=== PATIENT | female | born 1980 | race Hispanic/Latino ===

== ENCOUNTER 2019-08-20 06:44 | Emergency (ER) | payer OTHER ==
[~2019-08-20] VITALS: Ht 149.9 cm; Wt 44.5 kg
[2019-08-20 06:44] VITALS: BP 152/112
[2019-08-20 07:04] VITALS: BP 152/112
[2019-08-20] MEDS ORDERED: NS 50ML 50 ML IV ONE (07:26)
[2019-08-20] MEDS ORDERED: PHENERGAN ONE (07:27)
[2019-08-20] MEDS ORDERED: PHENERGAN IV STA (07:30)
--- NOTE | 2019-08-20 07:33 | PCM.EKG ---
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
--- NOTE | 2019-08-20 07:40 | ER.PDOC ---
General Chief Complaint: Nausea,Vomiting,Diarrhea Stated Complaint: NAUSEA, VOMITING Time seen by MD: 07:36 Source: patient Exam Limitations: no limitations History of Present Illness Initial Comments Nausea/vomiting since yesterday, no abdominal pain or diarrhea, patient is a chronic alcoholic and she drank heavily yesterday. She also does Marijuana. Severity/Quality: moderate Associated Symptoms (vomiting): freq vomitng Allergies: Coded Allergies: No Known Allergies (Unverified , 08/20/19) Vital Signs First Vital Signs Date Time Temp Pulse Resp B/P (MAP) Pulse Ox O2 Delivery O2 Flow Rate FiO2 08/20/19 06:44 98.5 133 18 08/20/19 06:44 98 08/20/19 07:04 Room Air Last Vital Signs Date Time Temp Pulse Resp B/P (MAP) Pulse Ox O2 Delivery O2 Flow Rate FiO2 08/20/19 07:04 98.5 133 18 98 Room Air Past Medical History Medical History: no pertinent history Surgical History: no surgical history Social History Alcohol Use: heavy Drug Use: marijuana Constitutional: no symptoms reported Respiratory: no symptoms reported Cardiovascular: no symptoms reported Gastrointestinal: see HPI Genitourinary: no symptoms reported All Other Systems: Reviewed and Negative Physical Exam General Appearance: No Apparent Distress, WD/WN Neck: Non-Tender, Full Range of Motion, Supple, Normal Inspection Respiratory: chest non-tender, lungs clear, normal breath sounds, no respiratory distress, no accessory muscle use Cardiovascular: Normal Peripheral Pulses, Regular Rate, Rhythm, No Edema, No Gallop, No JVD, No Murmur, Tachycardia Gastrointestinal: Normal Bowel Sounds, Non Tender, Soft Back: Normal Inspection, No CVA Tenderness, No Vertebral Tenderness Extremities: Normal Range of Motion, Non-Tender, Normal Inspection, No Pedal Edema, No Calf Tenderness, Normal Capillary Refill, Pelvis Stable Neurologic/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: 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, No Motor/Sensory Deficits, Alert, Normal Mood/Affect, Oriented x 3 Skin: Normal Color, Warm/Dry Results/Orders Results/Orders Orders - BRAULIO JEREZ MD 0.9 % Sodium Chloride (Ns 50ml) (08/20/19 07:26) Promethazine Hcl (Phenergan) (08/20/19 07:27) Cbc With Auto Diff (08/20/19 07:30) Comprehensive Metabolic Panel (08/20/19 07:30) Lipase (08/20/19 07:30) Urinalysis (08/20/19 07:30) Ekg-Routine (08/20/19 07:30) Alcohol(Ml) (08/20/19 07:30) Drug Scrn Med W Confirmation (08/20/19 07:30) Hcg Urine (08/20/19 07:30) Promethazine Hcl (Phenergan) (08/20/19 07:30) Urine Culture (08/20/19 07:40) Vital Signs Date Time Temp Pulse Resp B/P (MAP) Pulse Ox O2 Delivery O2 Flow Rate FiO2 08/20/19 07:04 98.5 133 18 98 Room Air 08/20/19 06:44 98.5 133 18 98 08/20/19 06:44 98.5 133 18 Administered Medications Medications (Trade) Dose Ordered Sig/Marcela Route PRN Reason Start Time Stop Time Status Last Admin Dose Admin Promethazine HCl (Phenergan) 25 mg STAT STAT IV 08/20/19 07:30 08/20/19 07:33 DC 08/20/19 07:55 25 MG Laboratory Tests Test 08/20/19 07:38 08/20/19 07:40 White Blood Count 6.0 10^3/uL (4.5-11.0) Red Blood Count 3.92 10^6/uL (4.00-5.20) L Hemoglobin 13.2 g/dL (12.0-15.0) Hematocrit 37.6 % (36.0-46.0) Mean Corpuscular Volume 95.9 fL (78-100) Mean Corpuscular Hemoglobin 33.7 pg (26-34) Mean Corpuscular Hemoglobin Concent 35.1 g/dL (33-36.5) Red Cell Distribution Width 13.6 % (11.5-14.5) Platelet Count 275 10^3/uL (150-400) Mean Platelet Volume 8.9 fL (7.8-11.0) Neutrophils (%) (Auto) 81.7 % (41.0-85.0) Lymphocytes (%) (Auto) 10.1 % (24.0-44.0) L Monocytes (%) (Auto) 7.6 % (5.0-12.0) Neutrophils # (Auto) 4.9 10^3/uL (1.8-7.7) Lymphocytes # (Auto) 0.60 10^3/uL1 (1.0-4.8) L Monocytes # (Auto) 0.5 10^3/uL (0.3-0.8) Absolute Immature Granulocyte (auto 0.02 10^3 u/L (0-2) Absolute Eosinophils (auto) 0.0 10^3/uL (0.0-0.2) Immature Granulocytes % 0.30 % (0.00-0.50) Eosinophils % 0.0 % (0.0-5.0) Basophils % 0.3 % (0.0-0.2) H Basophils # 0.0 10^3/uL (0.0-0.1) Sodium Level 139 mmol/L (132-145) Potassium Level 3.4 mmol/L (3.6-5.2) L Chloride Level 98.0 mmol/L (96-109) Carbon Dioxide Level 25.0 mmol/L (20.0-32) Anion Gap 19.4 Blood Urea Nitrogen 3 mg/dL (7-18) L Creatinine 0.80 mg/dL (0.59-1.40) Estimated GFR () 96.6 (>/=60) Est GFR (CKD-EPI)(Non-Afr [place]) 79.9 (>/=60) BUN/Creatinine Ratio 3.0 Glucose Level 99 mg/dL (70-110) Calcium Level 8.3 mg/dL (8.4-10.5) L Total Bilirubin 0.8 mg/dL (0.2-1.0) Aspartate Amino Transferase (AST) 46 U/L (0-35) H Alanine Aminotransferase (ALT) 27 U/L (12-78) Alkaline Phosphatase 68 U/L (50-136) Total Protein 7.6 g/dL (6.4-8.2) Albumin 4.1 g/dL (3.4-5.0) Globulin 3.5 Lipase 133 U/L (114-286) Serum Alcohol 49 mg/dL (0-50) Urine Collection Type VOID Urine Color YELLOW (YELLOW) Urine Appearance CLOUDY (CLEAR) H Urine Bilirubin NEGATIVE MG/DL (NEGATIVE) Urine Ketones MODERATE (NEGATIVE) H Urine Specific [place] 1.010 (1.005-1.035) Urine pH 7.0 (5.0-6.0) Urine Protein TRACE (NEGATIVE) H Urine Urobilinogen NORMAL (NEGATIVE) Urine Nitrate POSITIVE (NEGATIVE) H Urine Leukocyte Esterase 1+ (NEGATIVE) Urine Blood 50 2+ (NEGATIVE) H Urine RBC 0-2 RBC/HPF (NONE SEEN) Urine WBC 10-25 WBC/HPF (0-2) H Urine Squamous Epithelial Cells MODERATE #/HPF (FEW) Urine Bacteria MANY (NONE SEEN) H Urine Glucose NEGATIVE (NEGATIVE) Urine HCG, Qualitative NEGATIVE (NEGATIVE) Urine Opiates Screen NEGATIVE (c/o300ng/mL) Urine Methadone Screen NEGATIVE (c/o300ng/mL) Urine Barbiturates Screen NEGATIVE (c/o200ng/mL) Urine Phencyclidine Screen NEGATIVE (c/o 25ng/mL) Ur Amphetamine/Methamphetamine NEGATIVE ([id number]/mL) Urine MDMA Screen (Ecstasy) NEGATIVE (c/o300ng/mL) Urine Benzodiazepines Screen PRESUMPTIVE POSITIVE Urine Cocaine Metabolite Screen NEGATIVE (c/o300ng/mL) Ur Tetrahydrocannabinol (THC) Scrn PRESUMPTIVE POSITIVE (c/o Progress Progress Patient feeling better after hydration and heart rate improved to 112. She told me she took her boyfriend's Ativan prior to coming to the ED that is why she is positive for Benzodiazepine. She refused a second litre of fluids telling me that she is feeling better and wants to go home. Departure Time of Disposition: 08:42 Disposition: 01 HOME, SELF-CARE Impression: Primary Impression: Nausea & vomiting Additional Impressions: Dehydration Alcohol abuse Marijuana abuse UTI (urinary tract infection) Condition: Stable Additional Instructions: Phenergan Macrobid Start feeding with clear liquids and advance diet as tolerated F/U with Substance abuse program Push fluids F/U with your PCP in 2-3 days Return to ED if worsening symptoms or concerns Duration or Time Spent with Pa: 45 min Problem Qualifiers Primary Impression: Nausea & vomiting Vomiting type: unspecified Vomiting Intractability: intractable Qualified Codes: R11.2 - Nausea with vomiting, unspecified Additional Impressions: UTI (urinary tract infection) Urinary tract infection type: site unspecified Hematuria presence: with hematuria Qualified Codes: N39.0 - Urinary tract infection, site not specified; R31.9 - Hematuria, unspecified BRAULIO JEREZ MD August 20, 2019 07:40
[2019-08-20 07:43] LABS: BASOPHIL % 0.3 % (0.0-0.2); LYMPHOCYTES % 10.1 % (24.0-44.0); MEAN CORP HGB 33.7 pg (26-34); MONOCYTES # 0.5 10^3/uL (0.3-0.8); MONOCYTES % 7.6 % (5.0-12.0); NEUTROPHIL # 4.9 10^3/uL (1.8-7.7); NEUTROPHILS % 81.7 % (41.0-85.0); PLATELET COUNT 275 10^3/uL (150-400); RED CELL DISTRIBUTION WIDTH 13.6 % (11.5-14.5)
[2019-08-20 08:09] LABS: CALCIUM 8.3 mg/dL (8.4-10.5)
[2019-08-20 08:18] LABS: APPEARANCE,URINE CLOUDY (CLEAR); BILIRUBIN,URINE NEGATIVE (NEGATIVE); UA COLOR YELLOW (YELLOW)
[2019-08-20 08:19] LABS: UROBILINOGEN,URINE NORMAL (NEGATIVE)
[2019-08-20] MEDS ORDERED: ROCEPHIN 1 GM in NS 100ML 100 ML IV STA (08:58)
[2019-08-20] MEDS ORDERED: ROCEPHIN ONE (08:58)
[2019-08-20] MEDS ORDERED: NS 100ML 100 ML IV ONE (08:58)
[2019-08-20 09:20] VITALS: BP 137/58
== END 2019-08-20 09:25 | disposition home or self-care (01) ==
LOC: EDBD 06:44 → ER 06:44
DX: E86.0 Dehydration (principal); N39.0 Urinary tract infection, site not specified; R11.2 Nausea with vomiting, unspecified; F10.10 Alcohol abuse, uncomplicated; F12.10 Cannabis abuse, uncomplicated; Z79.899 Other long term (current) drug therapy
CPT/HCPCS: 36415; 80053; 80307; 80320; 80346; 80349; 81000; 81025; 83690; 85025; 87077 ×2; 87086; 87186 ×2; 93005; 96365; 96375; 99284; J0696 ×2; J2550; J7050 ×2